=== PATIENT | male | born 1980 | race Caucasian/White ===

== ENCOUNTER 2017-12-24 22:14 | Emergency (ER) | payer SELFPAY ==
[~2017-12-24] VITALS: Ht 167.6 cm; Wt 72.0 kg
[2017-12-24 22:17] VITALS: BP 118/81
== END 2017-12-25 02:49 | disposition left against medical advice (07) ==
LOC: ER 12-25 00:20
DX: Z53.21 Procedure and treatment not carried out due to patient leaving prior to being seen by health care provider (principal)